=== PATIENT | male | born 1970 | race Caucasian/White ===

== ENCOUNTER 2018-12-10 11:06 | Emergency (ER) | payer MEDICAID, OTHER ==
[~2018-12-10] VITALS: Ht 177.8 cm; Wt 82.0 kg
[2018-12-10 11:10] VITALS: Ht 177.8 cm; Wt 82.0 kg
[2018-12-10] MEDS ORDERED: ONDANSETRON 4 MG INJ IV STA (11:47)
[2018-12-10] MEDS ORDERED: SOD CHLORIDE 0.9% 1,000 ML IV STA (11:47)
[2018-12-10] MEDS ORDERED: morphine 4 MG/ML VIAL IV STA (11:47)
--- NOTE | 2018-12-10 15:55 | ERD ---
ER Documentation Chief Complaint Chief Complaint right side flank pain x 2 days deneis pain with urination HPI This is a very pleasant 47-year-old male who presents to the emergency department complaining of right flank pain that is been present for 48 hours. The patient indicates that the pain is a persistent sharp shooting pain. He denies any frequency urgency or dysuria. He states the pain does not radiate. He is never had any similar pain in the past. He denies any hematuria. He said no fevers or shaking no chills. He states there is no alleviating or exacerbating factors to the flank pain. The patient indicates that in 1996 he was diagnosed with left testicular cancer. There was metastasis with a mass to his lower abdomen. This was surgically removed through an expiratory laparotomy. He indicates his last PET scan was 10 years ago and found to be normal. He denies any weight loss. He said no shortness of breath at rest or exertion. He denies any abdominal distention. He said no constipation or diar ariel. He has not felt nauseous or experienced any emesis. ROS All systems reviewed and are negative except as per history of present illness. Medications Home Meds No Active Prescriptions or Reported Meds Allergies Allergies: Coded Allergies: No Known Allergy (Unverified , 12/10/18) PMhx/Soc Hx Alcohol Use: No Hx Substance Use: No Hx Tobacco Use: No Smoking Status: Former smoker Physical Exam Vitals Vital Signs Date Temp Pulse Resp B/P (MAP) Pulse Ox O2 O2 Flow FiO2 Time Delivery Rate 12/10/18 98.0 56 18 120/81 99 Room Air 13:58 (94) 12/10/18 97.9 86 18 124/77 97 11:10 (93) Physical Exam Constitutional:Well-developed. Well-nourished. HEENT:Normocephalic. Atraumatic.Pupils were equal round reactive to light. Moist mucous membranes. Neck: No nuchal rigidity. No lymphadenopathy. No posterior cervical spine tenderness or step-offs. Respiratory: Not using accessory muscles of respiration.Lungs were clear to auscultation bilaterally. No rhonchi. No rales. No wheezing. Cardiovascular: Regular rate regular rhythm.No murmurs. No rubs were appreciated.S1, S2 normal. Distal pulses are palpable 2+ bilaterally. GI: Abdomen was soft. No tenderness in the right lower quadrant over McBurney's point. Psoas sign negative. Obturator sign negative. No abdominal distention. Right CVA tenderness.. No pulsatile abdominal masses or bruits. No rebound. No guarding. Bowel sounds were present and normal. Muscle skeletal: Full range of motion of both the upper and lower extremities bilaterally.Normal muscle tone.No assymetrical calf tenderness or swelling. NEURO: Patient was alert, awake, orientated x3.No facial droop. Gait observed and normal with no ataxia.Speech had regular rate and rhythm. No focal neurological deficits. Result Diagram: 12/10/18 1200 12/10/18 1200 Results 24 hrs Laboratory Tests Test 12/10/18 12:00 White Blood Count 10.1 10^3/ul Red Blood Count 5.21 10^6/ul Hemoglobin 16.3 g/dl Hematocrit 44.8 % Mean Corpuscular Volume 86.0 fl Mean Corpuscular Hemoglobin 31.3 pg Mean Corpuscular Hemoglobin Concent 36.4 g/dl Red Cell Distribution Width 13.0 % Platelet Count 333 10^3/UL Mean Platelet Volume 10.0 fl Immature Granulocytes % 0.500 % Neutrophils % 52.7 % Lymphocytes % 38.4 % Monocytes % 5.6 % Eosinophils % 2.0 % Basophils % 0.8 % Nucleated Red Blood Cells % 0.0 /100WBC Immature Granulocytes # 0.050 10^3/ul Neutrophils # 5.3 10^3/ul Lymphocytes # 3.9 10^3/ul Monocytes # 0.6 10^3/ul Eosinophils # 0.2 10^3/ul Basophils # 0.1 10^3/ul Nucleated Red Blood Cells # 0.0 10^3/ul Prothrombin Time 12.7 Sec Prothrombin Time Ratio 1.0 INR International Normalized Ratio 0.94 Activated Partial Thromboplast Time 27.9 Sec Urine Color YELLOW Urine Clarity CLEAR Urine pH 6.0 Urine Specific Bradley 1.018 Urine Ketones NEGATIVE mg/dL Urine Nitrite NEGATIVE mg/dL Urine Bilirubin NEGATIVE mg/dL Urine Urobilinogen NEGATIVE mg/dL Urine Leukocyte Esterase NEGATIVE Tashi/ul Urine Microscopic RBC 4 /HPF Urine Microscopic WBC 1 /HPF Urine Mucus MODERATE /HPF Urine Hemoglobin 1+ mg/dL Urine Glucose NEGATIVE mg/dL Urine Total Protein NEGATIVE mg/dl Sodium Level 142 mmol/L Potassium Level 4.0 mmol/L Chloride Level 104 mmol/L Carbon Dioxide Level 29 mmol/L Anion Gap 9 Blood Urea Nitrogen 16 mg/dl Creatinine 0.86 mg/dl Est Glomerular Filtrat Rate mL/min > 60 mL/min Glucose Level 103 mg/dl Calcium Level 8.8 mg/dl Total Bilirubin 1.1 mg/dl Direct Bilirubin 0.00 mg/dl Indirect Bilirubin 1.1 mg/dl Aspartate Amino Transf (AST/SGOT) 23 IU/L Alanine Aminotransferase (ALT/SGPT) 25 IU/L Alkaline Phosphatase 67 IU/L Troponin I < 0.012 ng/ml Total Protein 8.4 g/dl Albumin 4.3 g/dl Globulin 4.10 g/dl Albumin/Globulin Ratio 1.04 Amylase Level 84 U/L Lipase 76 U/L Current Medications Medications Dose Sig/Yuid Start Time Status Last (Trade) Ordered Route PRN Stop Time Admin Dose Reason Admin Sodium 1,000 ml @ Q1H STAT 12/10/18 DC 12/10/18 Chloride 1,000 mls/hr IV 11:47 12:08 12/10/18 12:46 Morphine 4 mg ONCE STAT 12/10/18 DC 12/10/18 Sulfate IV 11:47 12:09 (morphine) 12/10/18 11:48 Ondansetron 4 mg ONCE STAT 12/10/18 DC 12/10/18 HCl (Zofran IV 11:47 12:08 Inj) 12/10/18 11:48 Procedures/MDM The patient presented to the emergency department with flank pain. My differential diagnosis included but was not limited to spinal origins of the pain such as fracture, osteomyelitis, epidural abscess, neoplasm, spondylolishtesis, discogenic, cauda equina syndrome or musculoligamentous. Nonspinal causes such as AAA, upper UTI, renal colic, aortic dissection, abdominal neoplasm were also considered as an etiology into their pain. Patient was placed on cardiac tech continuous pulse oximetry and IV access was established. The patient was given intravenous morphine and Zofran for analgesia control. The patient had no leukocytosis. There is no severe electrolyte of normalities. Patient was afebrile. I did obtain a CT scan of the abdomen without contrast as there was concern for possible nephrolithiasis. The CT scan was reviewed by the radiologist who I spoke with and indicated the followin. There is very impressive mesenteric stranding (evangelista mesentery) located inferior but separate from the pancreas extending along the branches of the superior mesenteric artery and vein at and to the left of midline. Differential possibilities include mesenteric panniculitis, neoplasm such as lymphoma or infiltration of the lymphatics by carcinoma, and can be seen with inflammatory bowel disease, as well as with mesenteric venous thrombosis. Several small mesenteric nodes are seen within area of fat stranding. 2. The vermiform appendix is prominent in size measuring 9 mm in maximal diameter and a 6 mm appendicolith is seen within the distal appendix but there is no significant stranding in the adjacent fat to suggest acute inflammation. Clinical correlation is indicated. There is no evidence of bowel obstruction or inflammation. 3. There is no free intraperitoneal fluid or air. There is a small fat containing umbilical hernia and a small fat containing right inguinal hernia. 4. Cholelithiasis not associated with gallbladder wall thickening, bile duct di latation, or pancreatic pathology. 5. Mild hepatomegaly with diffuse fatty infiltration but no focal lesion. The spleen is very mildly enlarged. 6. Multiple surgical dez are seen within the retroperitoneum and along the left common and external iliac chain likely related to previous lymph node resection. The aorta and inferior vena cava are normal in caliber. 7. Degenerative disc changes at L5-S1 and at L4-L5 with a mild disc bulge at L4-5 and with associated degenerative enthesopathy. I explained the findings to the patient. After discussion with the radiologist I did obtain a CT scan with IV contrast to help further evaluate the etiology of the patient's pain. My clinical suspicion was low for appendicitis as the pain was not localized over the right lower quadrant, there is no leukocytosis the patient was afebrile. The patient stated his pain had improved. He stated he felt comfortable following up with his primary care physician as indicated could not rule out a neoplastic process. The patient was sent home with analgesic medication. Departure Diagnosis: Primary Impression: Flank pain Condition: YISSEL Estrada MD Dec 10, 2018 15:55
[2018-12-10] MEDS ORDERED: DOCU-144 PO (15:57)
[2018-12-10] MEDS ORDERED: HYDR-4011 PO (15:57)
[2018-12-10] MEDS ORDERED: IOHEXOL 300MG/ML 150 ML BTL ONE (16:22)
[2018-12-10] MEDS ORDERED: SOD CHLORIDE 0.9% 100 ML ONE (16:22)
[2018-12-10 18:20] VITALS: BP 110/72; PULSE 63; RESP 18
== END 2018-12-10 18:25 | disposition home or self-care (01) ==
LOC: E/R 11:06
DX: R10.9 Unspecified abdominal pain (principal); R40.2142 Coma scale, eyes open, spontaneous, at arrival to emergency department; R40.2362 Coma scale, best motor response, obeys commands, at arrival to emergency department; R40.2252 Coma scale, best verbal response, oriented, at arrival to emergency department; Z87.891 Personal history of nicotine dependence
CPT/HCPCS: 36415; 74176; 74177; 80053; 81001; 82150; 83690; 84484; 85025; 85610; 85730; 96361; 96374; 96375; J2270; J2405; J7030; Q9967; Z7502; Z7610